=== PATIENT | female | born 1990 | race Caucasian/White ===

== ENCOUNTER → 2021-02-03 03:36 | Outpatient (CLI) | payer OTHER, SELFPAY ==
[2021-02-03 20:31] LABS: SARS-CoV-2 RNA PCR Negative
== END ==
PROVIDERS: Visit Provider Surgery Plastic and Reconstructive Surgery
DX: Z01.812 Encounter for preprocedural laboratory examination (principal); Z20.822 Contact with and (suspected) exposure to COVID-19
CPT/HCPCS: C9803; U0003; U0005

== ENCOUNTER 2021-02-03 08:20 | Outpatient (CLI) | payer OTHER, SELFPAY ==
[2021-02-03 08:40] LABS: Hematocrit 36.9 % (37.0-47.0)
--- NOTE | 2021-02-03 09:00 | ECG_ITS ---
Measurements Intervals [place] Rate: 67 P: 65 [place]: 159 QRS: 72 QRSD: 85 T: 53 QT: 404 QTc: 428 Interpretive Statements SINUS RHYTHM WITH SINUS ARRHYTHMIA BASELINE ARTIFACT- I, II, III, AVR, AVL, AVF NORMAL ECG Electronically Signed On 02-03-2021 8:57:25 CDT by Rito Aguero D.O.
== END 2021-02-03 08:21 | disposition home or self-care (01) ==
LOC: ANHSURGERY 08:24
PROVIDERS: Anesthesiology; PCP Family Medicine; Visit Provider Surgery Plastic and Reconstructive Surgery
DX: Z41.9 Encounter for procedure for purposes other than remedying health state, unspecified (principal)
CPT/HCPCS: 36415; 85014; 85018; 93005

== ENCOUNTER 2021-02-06 01:18 | Day surgery (SDC) | payer OTHER, SELFPAY ==
[2021-01-27 14:46] VITALS: BMI 24.0
[2021-02-06] VITALS (9 sets, daily range): BP systolic 92–121; BP diastolic 64–81; PULSE 66–98; RESP 15–16; TEMP 36–36.9; O2SAT 99–100; BMI 23.9
[2021-02-06] MEDS: LACTATED RINGERS 1,000 ML 30 ML IV CONT ×2 (08:52→14:36)
[2021-02-06 08:53] LABS: Urine Cotinine NEGATIVE
--- NOTE | 2021-02-06 09:27 | WPDANESEPPF ---
Anes - Initial Pre Proc Eval Procedure: Operation Date: 02/06/21 10:00 Proposed Procedures p Abdominoplasty - Keo Chavez MD s Flank Liposuction - Keo Chavez MD s Bilateral Breast Augmentation - Keo Chavez MD Date/Time: 02/06/21 09:27 Surgeon: Keo Chavez MD Pre Op Diagnosis: Skin Laxity Patient Data Age: 30 Gender: F Height: 5 ft Weight: 55.6 kg Last Vital Signs Temp 36.4 C L 02/06/21 08:20 Pulse 82 02/06/21 08:20 Resp 16 02/06/21 08:20 BP 112/68 02/06/21 08:20 Pulse Ox 100 02/06/21 08:20 Allergies Allergy/AdvReac Type Severity Reaction Status Date / Time No Known Allergies Allergy Verified 02/06/21 08:28 Home Medications Medication Instructions Recorded Confirmed Type carisoprodol 350 mg tablet 350 mg PO TID PRN #21 tablet 01/22/21 01/27/21 Rx docusate sodium 100 mg capsule 100 mg PO DAILY #14 cap 01/22/21 01/27/21 Rx ondansetron HCl 4 mg tablet 4 mg PO Q8H #28 tablet 01/22/21 01/27/21 Rx oxycodone-acetaminophen 5 mg-325 1 tablet PO Q6H PRN #15 tablet 01/22/21 01/27/21 Rx mg tablet multivitamin 1 tablet PO DAILY 01/27/21 02/06/21 History Laboratory Tests 02/06/21 08:20 Cotinine Negative Patient hx anesthesia problems: none Family hx anesthesia problems: none [facility] Social History Social History Smoking status: Never smoker Alcohol intake: current Drinks per week: 4 Substance use: never Substance use type: does not use Living arrangements: with family Spiritual care concerns: No Anes - Eval Final PreProcedure Day of Procedure 02/06/21 09:27 Patient weight: normal Heart: regular rate and rhythm Lungs: clear to auscultation Neurological: alert and oriented Last oral intake: >/= 8 hours ASA classification: I Emergent: no Anesthetic plan: proceed Anesthesia type and monitoring: general ETT and standard monitoring Informed Consent: The patient's anesthetic plan and its attendant risks and benefits were discussed with the patient/family/POA. Questions were solicited and answers provided to the satisfaction of the patient/family/POA.
--- NOTE | 2021-02-06 10:09 | SUR.PREOP ---
1005; PT AND SPOUSE NOTIFIED OF APPROX 15-30 MIN DELAY.
--- NOTE | 2021-02-06 10:23 | WPDHPUPDATE1 ---
History and Physical Update Update Date/Time: 02/06/21 10:23 History and Physical has been reviewed, including an updated exam of the patient. There are NO changes in the patient's condition. Risks, benefits, and alternatives have been discussed and questions answered. Patient agrees to proceed with procedure.
--- NOTE | 2021-02-06 10:41 | SUR.PREOP ---
1020; TECH IN ROOM WITH DR GONZALES FOR MARKING. SPOUSE AT SIDE.
--- NOTE | 2021-02-06 11:03 | PM.PROC ---
Procedure Note - Detailed Date of procedure: 02/06/21 Pre-op diagnosis: Skin Laxity Localized Adiposity Micromastia Post-op diagnosis: same Procedure performed: 1. Bilateral augmentation mammoplasty 2. Flank suction lipectomy 3. Progressive tension abdominoplasty Description of procedure: She is here today for above. Previously and again today the risks, benefits, alternatives were discussed in extensive detail. I wanted her to be very realistic about the risks involved as well as expectations. We discussed aftercare and what to monitor for. Made sure answered all of her questions to her satisfaction today and consent was obtained. Marked in the preoperative holding area with their verification. The patient was taken to the operating room placed supine on the operating table. Anesthesia was provided by anesthesiology. A surgical time-out was taken. Breast Augmentation: We cleansed the skin and 1% lidocaine and 0.25% Marcaine with epinephrine was used anesthetize as a field block for the breast. She was prepped and draped in a standard sterile fashion. Tegaderm nipple [place] were placed. A 15 blade used to make an incision along the inframammary fold. Dissection was continued at 45 degree angle until the chest wall as identified. I incised the pectoralis major along its inferior border and completely released the inferior border leaving the medial border intact. I created a subpectoral pocket in the appropriate dimensions based on our preoperative planning for the implant. I then copiously irrigated with saline solution and verified a strict hemostasis. Next the use a triple antibiotic and Betadine containing solution to irrigate the pocket. I washed my gloves with the triple antibiotic and Betadine solution. We washed the implant immediately upon opening it with this solution and only opened it when we needed it. I used implant funnel and no-touch technique. The implant was introduced into the pocket using the funnel. Having verified positioning of the implant this was closed using 2-0 Vicryl followed by 3-0 Monocryl in a running subcuticular 4-0 Monocryl followed by tissue glue. Suction lipectomy: A thorough abdominal examination was completed. Stab incisions were made for the flank suction lipectomy. Using modification of S.A.F.E. technique completed suction lipectomy based on preoperative planning and intraoperative observations as well as rolling pinch test. During the procedure I did place her in left and right lateral decubitus position as she had been prepped circumferentially. Abdominoplasty: I placed the patient in a flexed position to verify the upper and lower markings would reach. I then placed her supine. A thorough abdominal examination was completed. Stab incisions were made and used tumescent solution. A 10 blade was used to make the upper incision. I continued dissection down to the level of fascia. Elevated just what was necessary for repair of the diastasis and discontinuous undermining otherwise. I then again flexed the bed to verify the upper skin flap would reach the lower markings without tension. Once verified I placed her supine once again and a 10 blade used to make the lower incision. I elevated up to level the umbilicus and left the umbilicus intact on a well-vascularized stalk. The intervening tissue was removed. A 2 mm blunt cannula and Exparel which was mixed 20 cc in 100 cc for a total volume of 120 cc I injected deep to the fascia bilaterally as well as along the incision lines. I plicated the diastasis recti as well as obliques using 0 PDO stratafix barbed suture. This was in 2 separate layers using 2 separate sutures as well. I repaired around the umbilicus leaving plenty of room for well-vascularized stalk of the umbilicus with 2-0 PDS. The patient was flexed and starting from superior to inferior began plication using 2-0 Vicryl to obliterate all space in a standard progressive tension fashion.
[2021-02-06] MEDS: ceFAZolin 2 GM/D5W 50 ML 2 GM/50 ML BAG IVPB (11:08)
[2021-02-06] MEDS: LACTATED RINGERS IRRIG 1,000 ML, LIDOCAINE HCL 1% LOCAL INJ 50 ML, EPINEPHrine HCL INJ ... XX (11:51)
[2021-02-06] MEDS: LIDO 1%/EPINEPHRINE 1:100,000 50 ML VIAL 30 ML INFILTRATE (11:55)
--- NOTE | 2021-02-06 15:28 | SUR.PHASEI ---
1530 sbar faxed floor notified
--- NOTE | 2021-02-06 16:25 | PC.NURSE ---
1555-This patient, Vikki Levi, was admitted to OB 2nd Floor Room 286-00. Patient/family oriented to hospital policies and general routines including ID bracelet, bed and alarms, visiting hours, pain management, procedures, bathroom and other care routines, personal items, smoking policy, room service/diet, and visiting hours. Information on how to activate the Rapid Response Team has been discussed. Patient/Family are encouraged to report perceived risks to care and to ask questions if they do not understand what they are told or what they should do.
[2021-02-06] MEDS: LACTATED RINGERS 1,000 ML 125 ML IV CONT (16:46)
[2021-02-06] MEDS: carisoprodoL (*CRX) 350 MG TABLET PO (17:40)
[2021-02-06] MEDS: DOCUSATE SODIUM 100 MG CAPSULE PO (21:19)
[2021-02-06] MEDS: oxyCODONE/ACETAMINOPHEN (*CRX) 5-325 MG TABLET PO (21:22)
[2021-02-06] MEDS: ENOXAPARIN 40 MG/0.4 ML SYRINGE SUB-Q (21:23)
[2021-02-06] MEDS: ONDANSETRON INJ 4 MG/2 ML VIAL IV PUSH (22:59)
[2021-02-06] MEDS: MORPHINE SULFATE (*CRX) 2 MG/ML INJ IV PUSH (23:06)
[2021-02-07] VITALS: BP 104/67; PULSE 76; RESP 15; TEMP 37.1; O2SAT 100
[2021-02-07] MEDS: LACTATED RINGERS 1,000 ML 125 ML IV CONT ×2 (00:03→07:34)
[2021-02-07] MEDS: carisoprodoL (*CRX) 350 MG TABLET PO ×2 (00:04→07:27)
[2021-02-07] MEDS: MORPHINE SULFATE (*CRX) 2 MG/ML INJ IV PUSH ×2 (01:34→05:16)
[2021-02-07 05:00] VITALS: BP 98/61; PULSE 75; RESP 15; TEMP 36.9; O2SAT 98
--- NOTE | 2021-02-07 06:50 | WPDPN ---
Progress Note: A&P Assessment and Plan (1) Micromastia: Code(s): N64.82 - Hypoplasia of breast Status: Acute Assessment and Plan: She is doing very well after bilateral breast augmentation, suction lipectomy of flanks, progressive tension abdominoplasty. Will discharge home. Today we spent extensive time discussing the care. What monitor for. What is an emergency. Explained she can call with any questions or concerns at any time. I will see her back. (2) Skin laxity: Code(s): L57.4 - Cutis laxa senilis Status: Acute (3) Localized adiposity: Code(s): E65 - Localized adiposity Status: Acute Time Spent With Patient Time with patient: 15 - 25 minutes Review of Systems Review of Systems: All systems reviewed & are unremarkable except as noted in HPI and below Exam Narrative: Exam Narrative: Bilateral breasts are soft. No signs of infection. No hematoma. No seroma. Abdomen soft. No signs of infection. No hematoma. No seroma. Good color and capillary refill. No calf tenderness. Negative Homans. Const: General: comfortable, no acute distress, alert and awake; No acute distress Orientation/consciousness: oriented to person HENMT: Head: normal to inspection Ears: external ears normal General nose exam: Normal external nose present Face and sinus: normal facial exam Eyes: General: appearance normal, both eyes and all related structures Periorbital: periorbital findings normal Eyelids: eyelids normal Conjunctivae: conjunctivae normal Neck: Neck: normal visual inspection Chest: Chest palpation & inspection: normal inspection of the chest Resp: Effort & Inspection: normal respiratory effort and able to speak in complete sentences GI: Inspection: normal to inspection Neuro: General: oriented to person Psych: Appearance: grossly normal Mental Status: mental status grossly normal Objective Data Vital Signs Vital Signs: Vital Signs - 24 hr 02/06/21 08:20 02/06/21 14:40 02/06/21 14:55 Temperature 36.4 C L 36.0 C L Pulse Rate 82 98 86 Respiratory Rate 16 16 16 Blood Pressure 112/68 92/65 L 112/72 Pulse Oximetry 100 100 100 02/06/21 15:10 02/06/21 15:25 02/06/21 15:40 Temperature Pulse Rate 73 87 71 Respiratory Rate 16 16 16 Blood Pressure 114/81 121/71 111/67 Pulse Oximetry 100 100 100 02/06/21 16:15 02/06/21 16:25 02/06/21 18:55 Temperature 36.5 C 36.9 C Pulse Rate 66 66 71 Respiratory Rate 16 16 15 Blood Pressure 110/64 109/65 Pulse Oximetry 99 99 100 02/07/21 00:00 Temperature 37.1 C Pulse Rate 76 Respiratory Rate 15 Blood Pressure 104/67 Pulse Oximetry 100 Intake/Output Intake/Output: Intake & Output 02/04/21 02/05/21 02/06/21 02/07/21 23:59 23:59 23:59 23:59 Intake Total 910 1000 Output Total 1240 825 Balance -330 175 Meds/Results Medications: Active Medications Generic Name Dose Route Start Last Admin Trade Name Freq PRN Reason Stop Dose Admin Carisoprodol 350 mg 02/06/21 18:00 02/07/21 00:04 Carisoprodol (*Crx) 350 Mg Tablet PO 350 mg Q6HR ITZEL Administration Docusate Sodium 100 mg 02/06/21 21:00 02/06/21 21:19 Docusate Sodium 100 Mg Capsule PO 100 mg Q12HR ITZEL Administration Enoxaparin Sodium 40 mg 02/06/21 21:00 02/06/21 21:23 Enoxaparin 40 Mg/0.4 Ml Syringe SUB-Q 40 mg DAILY ITZEL Administration Lactated Ringer's 1,000 mls @ 125 mls/hr 02/06/21 14:30 02/07/21 00:03 Lr - Lactated Ringers Iv IV CONT 125 mls/hr .Q8H ITZEL Administration Morphine Sulfate 2 mg 02/06/21 14:30 02/07/21 05:16 Morphine Sulfate (*Crx) 2 Mg/Ml Inj IV PUSH 2 mg Q2H PRN Administration Pain Ondansetron HCl 4 mg 02/06/21 14:30 02/06/21 22:59 Ondansetron Inj 4 Mg/2 Ml Vial IV PUSH 4 mg Q6H PRN Administration Nausea Oxycodone/Acetaminophen 1 - 2 tablet 02/06/21 14:30 02/06/21 21:22 Oxycodone/Acetaminophen (*Crx) 5-325 Mg Tablet PO 1 tablet
--- NOTE | 2021-02-07 06:53 | P.DS_ITS ---
DS: Admitting Diagnosis Admitting Diagnosis Admitting Diagnosis: Micromastia Skin Laxity Localized Adiposity DS: Discharge Diagnosis Discharge Diagnosis (1) Micromastia: Code(s): N64.82 - Hypoplasia of breast Status: Acute (2) Skin laxity: Code(s): L57.4 - Cutis laxa senilis Status: Acute (3) Localized adiposity: Code(s): E65 - Localized adiposity Status: Acute DS: Summary Hospital Course Hospital Course: She underwent augmentation mammoplasty, suction lipectomy of flanks, progressive tension abdominoplasty. Postoperatively she has done well. She is ambulated. Pain is controlled. Tolerating diet. Will discharge home. Time Spent with Patient Time attestation: Total time spent providing and/or coordinating discharge services: 25 min. Exam Narrative: Exam Narrative: Bilateral breasts are soft. No signs of infection. No hematoma. No seroma. Abdomen soft. No signs of infection. No hematoma. No seroma. Good color and capillary refill. No calf tenderness. Negative Homans. Const: General: comfortable, no acute distress, alert and awake; No acute distress Orientation/consciousness: oriented to person HENMT: Head: normal to inspection Ears: external ears normal General nose exam: Normal external nose present Face and sinus: normal facial exam Eyes: General: appearance normal, both eyes and all related structures Periorbital: periorbital findings normal Eyelids: eyelids normal Conjunctivae: conjunctivae normal Neck: Neck: normal visual inspection Chest: Chest palpation & inspection: normal inspection of the chest Resp: Effort & Inspection: normal respiratory effort and able to speak in complete sentences GI: Inspection: normal to inspection Neuro: General: oriented to person Psych: Appearance: grossly normal Mental Status: mental status grossly nor mal DS: Data Data Completed and Pending Labs on day of discharge: Labs from last 24 hours 02/06/21 08:20 Cotinine Negative Discharge Plan Discharge Patient Disposition: Home, Self-Care Discharge Instructions: POST OPERATIVE DISCHARGE INSTRUCTIONS MADIHA GONZALES M.D. [facility] [facility] [address] [place] [address] * No driving for 24 hours after anesthesia and while you are taking pain medication. * Take all prescribed medication as directed * Diet as tolerated. * No lifting or activity that raises blood pressure for 48 hours. * Regular walking / ambulation. * No showering until directed to. Once you shower do not take pain medication before showering as the combination of medication and heat may cause you to feel dizzy or pass out. * No pools or tubs for 2 weeks. * Call with any questions or concerns. * No straining or lifting more than 20 pounds for 6 weeks. * Slowly stand up straight as tolerated. * Dressing Care: May shower. Continue compression (surgical or sports bra and abdominal binder) 23 hours per day until follow-up. If you have any questions or concerns, please call the office . If it is after hours you will be directed to the contracts representative exchange. Shortness of breath, chest pain, or other medical emergency dial 911 / proceed
--- NOTE | 2021-02-07 06:53 | PM.DS ---
DS: Admitting Diagnosis Admitting Diagnosis Admitting Diagnosis: Micromastia Skin Laxity Localized Adiposity DS: Discharge Diagnosis Discharge Diagnosis (1) Micromastia: Code(s): N64.82 - Hypoplasia of breast Status: Acute (2) Skin laxity: Code(s): L57.4 - Cutis laxa senilis Status: Acute (3) Localized adiposity: Code(s): E65 - Localized adiposity Status: Acute DS: Summary Hospital Course Hospital Course: She underwent augmentation mammoplasty, suction lipectomy of flanks, progressive tension abdominoplasty. Postoperatively she has done well. She is ambulated. Pain is controlled. Tolerating diet. Will discharge home. Time Spent with Patient Time attestation: Total time spent providing and/or coordinating discharge services: 25 min. Exam Narrative: Exam Narrative: Bilateral breasts are soft. No signs of infection. No hematoma. No seroma. Abdomen soft. No signs of infection. No hematoma. No seroma. Good color and capillary refill. No calf tenderness. Negative Homans. Const: General: comfortable, no acute distress, alert and awake; No acute distress Orientation/consciousness: oriented to person HENMT: Head: normal to inspection Ears: external ears normal General nose exam: Normal external nose present Face and sinus: normal facial exam Eyes: General: appearance normal, both eyes and all related structures Periorbital: periorbital findings normal Eyelids: eyelids normal Conjunctivae: conjunctivae normal Neck: Neck: normal visual inspection Chest: Chest palpation & inspection: normal inspection of the chest Resp: Effort & Inspection: normal respiratory effort and able to speak in complete sentences GI: Inspection: normal to inspection Neuro: General: oriented to person Psych: Appearance: grossly normal Mental Status: mental status grossly normal DS: Data Data Completed and Pending Labs on day of discharge: Labs from last 24 hours 02/06/21 08:20 Cotinine Negative Discharge Plan Discharge Patient Disposition: Home, Self-Care Discharge Instructions: POST OPERATIVE DISCHARGE INSTRUCTIONS KEO CHAVEZ M.D. [facility]LASTIC SUR[facility] [facility] [address] [place] [address] [address] for 24 hours after anesthesia and while you are taking pain medication. Take all prescribed medication as directed Diet as tolerated. No lifting or activity that raises blood pressure for 48 hours. Regular walking / ambulation. No showering until directed to. Once you shower do not take pain medication before showering as the combination of medication and heat may cause you to feel dizzy or pass out. No pools or tubs for 2 weeks. Call with any questions or concerns. No straining or lifting more than 20 pounds for 6 weeks. Slowly stand up straight as tolerated. Dressing Care: May shower. Continue compression (surgical or sports bra and abdominal binder) 23 hours per day until follow-up. If you have any questions or concerns, please call the office . If it is after hours you will be directed to the technical sales consultant exchange. Shortness of breath, chest pain, or other medical emergency dial 911 / proceed to the Emergency Room. Stand Alone Forms: General Discharge Instructions Follow-up/Referrals: Keo Chavez MD [Physician] - 1 Week Discharge Medications: Continued ondansetron HCl [Zofran] 4 mg tablet 4 mg PO Q8H Qty: 28 RF: 0 docusate sodium [Colace] 100 mg capsule 100 mg PO DAILY Qty: 14 RF: 0 carisoprodol [Soma] 350 mg tablet 350 mg PO TID PRN (Reason: muscle pain) Qty: 21 RF: 0 oxycodone-acetaminophen [Percocet] 5-325 mg tablet 1 tablet PO Q6H PRN (Reason: pain) Qty: 15 RF: 0 multivitamin Tablet 1 tablet PO DAILY RF: 0
[2021-02-07 07:05] VITALS: BP 98/61; PULSE 75; RESP 15; TEMP 36.9; O2SAT 98
[2021-02-07] MEDS: ONDANSETRON INJ 4 MG/2 ML VIAL IV PUSH (07:27)
[2021-02-07] MEDS: DOCUSATE SODIUM 100 MG CAPSULE PO (07:28)
--- NOTE | 2021-02-07 07:30 | WPDANESPN ---
Anes - Prog Note Post-Op Date/Time: 02/07/21 07:30 Cardiovascular status: normal Respiratory status: normal Airway patency: baseline Mental status: baseline Post-Op hydration status: normal Vital Signs: Last Vital Signs Temp 36.9 C 02/07/21 07:05 Pulse 75 02/07/21 07:05 Resp 15 02/07/21 07:05 BP 98/61 L 02/07/21 07:05 Pulse Ox 98 02/07/21 07:05 Pain Score (VAS): 3 I/O: Intake & Output 02/06/21 02/06/21 02/07/21 15:59 23:59 07:59 Intake Total 700 737 1775 Output Total 90 1150 1075 Balance 660 -990 -75 02/06/21 08:20 Cotinine Negative Post-procedural complaints: none Patient Feedback: Patient satisfied with anesthetic care.
[2021-02-07 07:48] VITALS: BP 99/61; PULSE 67; RESP 15; TEMP 36.1; O2SAT 100
[2021-02-07] MEDS: oxyCODONE/ACETAMINOPHEN (*CRX) 5-325 MG TABLET PO (09:03)
[2021-02-07 09:09] VITALS: BP 94/63
--- NOTE | 2021-02-07 11:50 | PC.NURSE ---
Discharge instructions and education given to patient. All questions answers.
--- NOTE | 2021-02-07 11:52 | PC.NURSE ---
Lovenox not given to patient at this time as she was given it at 2100 on 02/06 and it is scheduled to be given daily.
== END 2021-02-07 13:14 | disposition home or self-care (01) ==
LOC: ANHSURGERY 11:13 → ANHOB2 15:52
PROVIDERS: PCP Family Medicine; Visit Provider Surgery Plastic and Reconstructive Surgery
PROC: (CPT 19325; principal; 2021-02-06 10:00)
PROC: (CPT 15877; 2021-02-06 10:00)
PROC: (CPT 19325; 2021-02-06 10:00)
DX: Z41.1 Encounter for cosmetic surgery (principal); N64.82 Hypoplasia of breast; L57.4 Cutis laxa senilis; E65 Localized adiposity
CPT/HCPCS: 19325; 15830; 15847; 15877; 80307; 99199; A9270; C9290; J0171; J0330; J0690; J1100; J1170; J1200; J1580; J1650; J2250; J2270; J2370; J2405; J2704; J3010; J7120